=== PATIENT | female | born 1990 | race Caucasian/White ===

== ENCOUNTER 2020-03-03 12:45 | Emergency (ER) | payer OTHER ==
[2020-03-03 14:07] LABS: HIV (1/2) Antibody/Antigen Non-Reactive (NonReactive); HIV 1/2 INDEX 0.11 S/CO (<1.00); Hep C IgG Ab Non-Reactive (NonReactive)
[2020-03-03 15:00] LABS: HBSAB Concentration 3437.78 mIU/mL; Hep B Surf AB Reactive (NonReactive)
== END 2020-03-03 13:34 | disposition home or self-care (01) ==
LOC: ERS 12:45
DX: S61.431A Puncture wound without foreign body of right hand, initial encounter (principal); W45.8XXA Other foreign body or object entering through skin, initial encounter
CPT/HCPCS: 36415; 86706; 86803; 87389; 99283